=== PATIENT | female | born 1955 | race Caucasian/White ===

== ENCOUNTER 2016-07-03 13:33 | Emergency (ER) | payer MEDICARE, MEDICAID ==
[~2016-07-03] VITALS: Ht 162.6 cm; Wt 154.0 kg
[~2016-07-03 13:33] MED LIST: ACET325 PO; ALBU2.5I INH; ALBU6.7H INH; ASPI81TA45 PO; BENZ100 PO; CALA240T PO; CYCL-36 PO; GLUCOMETER XX; GLUCOMTESTSTRIPS XX; HYDR-2768 PO; LISI-360 PO; LYRI75CA PO; MELO15TA2 PO; METF-324 PO; NEBUMIS6 INH; OMEP40CA2 PO; PRAV40TA PO; PREG75 PO; TAB-TAB PO; ZITH250T PO
[2016-07-03 13:49] VITALS: BP 130/69; PULSE 78; RESP 16; TEMP 97.6; O2SAT 96
[2016-07-03] MEDS ORDERED: LISI10TA3 PO (14:55)
[2016-07-03] MEDS ORDERED: HYDR25TA5 PO (14:55)
[2016-07-03] MEDS ORDERED: TRAV0.00 EACH EYE (14:55)
[2016-07-03] MEDS ORDERED: VENTAER INH (14:55)
[2016-07-03] MEDS ORDERED: MELO-1 PO (14:55)
[2016-07-03] MEDS ORDERED: CYCL1TAB29 PO (14:55)
[2016-07-03] MEDS ORDERED: NORC5TAB PO (14:55)
[2016-07-03] MEDS ORDERED: METF1000 PO (14:55)
[2016-07-03] MEDS ORDERED: CETI1TAB39 PO (14:55)
[2016-07-03] MEDS ORDERED: BIO-POW (14:55)
[2016-07-03] MEDS ORDERED: VITA100021 SL (14:55)
[2016-07-03] MEDS ORDERED: MULTTAB67 PO (14:55)
[2016-07-03] MEDS ORDERED: BRIN1SUS2 EACH EYE (14:55)
[2016-07-03] MEDS ORDERED: GLIP5TAB8 PO (14:55)
[2016-07-03] MEDS ORDERED: VERA120T3 PO (14:55)
[2016-07-03] MEDS ORDERED: PRAV40TA2 PO (14:55)
[2016-07-03] MEDS ORDERED: MORPHINE SULFATE 4 MG/ML INJ IV PUSH ONE (15:00)
[2016-07-03] MEDS ORDERED: SODIUM CHLORID 0.9% 500 ML INJ 500 ML IV ONE (15:00)
[2016-07-03 15:23] LABS: AUTOMATED NEUTROPHIL # 12.8 TH/MM3 (1.8-7.7); BASOPHIL # 0.5 TH/MM3 (0-0.2); BASOPHIL % 2.6 % (0.0-2.0); EOSINOPHIL # 0.1 TH/MM3 (0-0.4); EOSINOPHIL % 0.6 % (0.0-4.0); HEMATOCRIT 43.7 % (35.0-46.0); LYMPHOCYTE # 3.7 TH/MM3 (1.0-4.8); MEAN CELL VOLUME 82.6 FL (80.0-100.0); MEAN CORPUSCULAR HGB CONC 32.6 % (32.0-36.0); MONO % 4.2 % (0.0-8.0); NEUT % 71.6 % (16.0-70.0); PLATELET COUNT 517 TH/MM3 (150-450); RED BLOOD COUNT 5.28 MIL/MM3 (4.00-5.30); RED CELL DISTRIBUTION WIDTH 14.5 % (11.6-17.2); WHITE BLOOD COUNT 17.8 TH/MM3 (4.0-11.0)
[2016-07-03 15:28] LABS: BLOOD, URINE TRACE (NEG); GLUCOSE,URINE NEG (NEG); KETONE, URINE NEG (NEG); PH, URINE 5.5 (5.0-8.5)
[2016-07-03 15:35] LABS: CHLORIDE 95 MEQ/L (98-107); POTASSIUM 4.4 MEQ/L (3.5-5.1); SODIUM (NA) 133 MEQ/L (136-145)
--- NOTE | 2016-07-03 15:37 | PD ---
HPI Chief Complaint: GI Complaint Time Seen by Provider: 14:49 Travel History International Travel<30 days: No Contact w/Intl Traveler<30days: No Traveled to known affect area: No History of Present Illness HPI Patient is a 61-year-old female comes in complaining of left lower quadrant abdominal pain. She says the pain started yesterday, and has been getting worse. She took an ibuprofen last night and went to sleep, but this morning she noticed the pain was worse. She says she has a constant dull ache, but it is worse with movement. She also reports diarrhea. She denies nausea or vomiting. She has not had any fever or chills. She did taken [place] prior to coming in. She says she has history of IBS and she had diverticulitis a long time ago. PFSH Past Medical History Arthritis: Yes Anxiety: Yes Depression: Yes Cancer: Yes (possible pelvic cancer) Cardiovascular Problems: No COPD: Yes Diabetes: Yes Patient Takes Glucophage: Yes Diminished Hearing: No Endocrine: Yes Gastrointestinal Disorders: Yes (CHRONIC DIARRHEA) Glaucoma: Yes (BOTH EYES) Genitourinary: Yes (URINARY INCONTINENCE) Hypertension: Yes Immune Disorder: No Musculoskeletal: Yes (ARTHRITIS) Neurologic: No Psychiatric: Yes Reproductive: Yes Respiratory: Yes (COPD) Menopausal: Yes Tubal Ligation: Yes Past Surgical History Abdominal Surgery: Yes (INCISIONAL HERNIA) AICD: No Gynecologic Surgery: Yes (TUBAL LIGATION, LASH) Joint Replacement: No Pacemaker: No Other Surgery: Yes Social History Alcohol Use: No Tobacco Use: Yes (03/09 PPD) Substance Use: No Allergies-Medications (Allergen,Severity, Reaction): Coded Allergies: No Known Allergies (Verified , 07/03/16) Reported Meds & Prescriptions Reported Meds & Active Scripts Active Cipro (Ciprofloxacin HCl) 500 Mg Tab 500 Mg PO BID 7 Days Reported Simbrinza Opth Drops (Brinzolamide-Brimonidine Opth Drops) 1-0.2% Susp 1 Drop EACH EYE Q8HR Travatan Z Opth Drops (Travoprost) 0.004 % Soln 1 Drop EACH EYE HS Vitamin B-12 (Cyanocobalamin) 1,000 Mcg Subl 1,000 Mcg SL DAILY Multiple Vitamin 1 Tab 1 Tab PO DAILY [place] (Hydrocodone-Acetaminophen) 5-325 mg Tab 1 Tab PO BID PRN Glipizide 5 Mg Tab 2.5 Mg PO BIDAC Take 30 minutes before a meal Zyrtec Allergy (Cetirizine HCl) 10 Mg Tab 10 Mg PO DAILY Flexeril (Cyclobenzaprine HCl) 10 Mg Tab 10 Mg PO TID Bio-Statin Powder (Nystatin) 1 Pow Pow Hydrochlorothiazide 25 Mg Tab 25 Mg PO DAILY Metformin (Metformin HCl) 1,000 Mg Tab 1,000 Mg PO BIDPC With meals Ventolin Hfa 18 GM Inh (Albuterol Sulfate) 90 Mcg/Act Aer 2 Puff INH Q4H PRN Verapamil (Verapamil HCl) 120 Mg Tab 120 Mg PO BID Pravastatin 40 Mg Tab 40 Mg PO HS Meloxicam 15 Mg Tab 15 Mg PO DAILY Lisinopril 10 Mg Tab 10 Mg PO DAILY Review of Systems Except as stated in HPI: all other systems reviewed are Neg General / Constitutional: No: Fever, Chills HENT: No: Headaches Cardiovascular: No: Chest Pain or Discomfort Respiratory: No: Shortness of Breath Gastrointestinal: Positive: Diarrhea, Abdominal Pain, No: Nausea, Vomiting Genitourinary: No: Dysuria Skin: No Rash, No Change in Pigmentation Neurologic: No: Weakness, Dizziness Physical Exam Narrative GENERAL: Awake and alert, in no acute distress. SKIN: Focused skin assessment warm/dry. HEAD: Atraumatic. Normocephalic. EYES: Pupils equal and round. No scleral icterus. ENT: Mucous membranes pink and moist. NECK: Trachea midline. No JVD. CARDIOVASCULAR: Regular rate and rhythm. No murmur appreciated. RESPIRATORY: No accessory muscle use. Clear to auscultation. Breath sounds equal bilaterally. GASTROINTESTINAL: Abdomen soft, nondistended. Left lower quadrant tenderness to palpation, no rebound or guarding. No CVA tenderness. MUSCULOSKELETAL: No obvious deformities. No clubbing. No cyanosis. No edema. NEUROLOGICAL: Awake and alert. No obvious cranial nerve deficits. Motor grossly within normal limits. Normal speech. PSYCHIATRIC: Appropriate mood and affect; insight and judgment normal. Data Data Last Documented VS Vital Signs Date Time Temp Pulse Resp B/P Pulse Ox O2 Delivery O2 Flow Rate FiO2 07/03/16 17:02 69 18 128/64 99 07/03/16 13:49 97.6 Orders Complete Blood Count With Diff (07/03/16 14:57) Comprehensive Metabolic Panel (07/03/16 14:57) Urinalysis - C+S If Indicated (07/03/16 14:57) Ct Abd/Pel W Iv Contrast(Rout) (07/03/16 ) Sodium Chlorid 0.9% 500 Ml Inj (Ns 500 M (07/03/16 15:00) Morphine Inj (Morphine Inj) (07/03/16 15:00) Urine Culture (07/03/16 15:23) Iohexol 350 Inj (Omnipaque 350 Inj) (07/03/16 15:40) Labs Laboratory Tests Test 07/03/16 07/03/16 15:10 15:23 White Blood Count 17.8 TH/MM3 Red Blood Count 5.28 MIL/MM3 Hemoglobin 14.3 GM/DL Hematocrit 43.7 % Mean Corpuscular Volume 82.6 FL Mean Corpuscular Hemoglobin 27.0 PG Mean Corpuscular Hemoglobin 32.6 % Concent Red Cell Distribution Width 14.5 % Platelet Count 517 TH/MM3 Mean Platelet Volume 7.8 FL Neutrophils (%) (Auto) 71.6 % Lymphocytes (%) (Auto) 21.0 % Monocytes (%) (Auto) 4.2 % Eosinophils (%) (Auto) 0.6 % Basophils (%) (Auto) 2.6 % Neutrophils # (Auto) 12.8 TH/MM3 Lymphocytes # (Auto) 3.7 TH/MM3 Monocytes # (Auto) 0.7 TH/MM3 Eosinophils # (Auto) 0.1 TH/MM3 Basophils # (Auto) 0.5 TH/MM3 CBC Comment DIFF FINAL Differential Comment Sodium Level 133 MEQ/L Potassium Level 4.4 MEQ/L Chloride Level 95 MEQ/L Carbon Dioxide Level 28.9 MEQ/L Anion Gap 9 MEQ/L Blood Urea Nitrogen 13 MG/DL Creatinine 0.91 MG/DL Estimat Glomerular Filtration 63 ML/MIN Rate Random Glucose 116 MG/DL Calcium Level 9.0 MG/DL Total Bilirubin 0.2 MG/DL Aspartate Amino Transf 20 U/L (AST/SGOT) Alanine Aminotransferase 24 U/L (ALT/SGPT) Alkaline Phosphatase 91 U/L Total Protein 6.9 GM/DL Albumin 2.9 GM/DL Urine Collection Type CLEAN CATCH Urine Color YELLOW Urine Turbidity SLIGHT Urine pH 5.5 Urine Specific [place] 1.026 Urine Protein TRACE mg/dL Urine Glucose (UA) NEG mg/dL Urine Ketones NEG mg/dL Urine Occult Blood TRACE Urine Nitrite POS Urine Bilirubin NEG Urine Leukocyte Esterase TRACE Urine RBC 4-9 /hpf Urine WBC 50-99 /hpf Urine Squamous Epithelial > 8 /hpf Cells Urine Bacteria MANY /hpf Microscopic Urinalysis Comment CULTURE INDICATED Urine Collection Time 15:23 [facility] Medical Decision Making Medical Screen Exam Complete: Yes Emergency Medical Condition: Yes Medical Record Reviewed: Yes Differential Diagnosis Colitis versus diverticulitis versus UTI Narrative Course Patient is a 61-year-old female comes in complaining of left lower quadrant abdominal pain. Exam shows point tenderness in the left lower quadrant. IV established, labs sent. Labs showed elevated white blood cell count of 17.8. Urinalysis is positive for infection. And pelvis shows no acute abnormalities. Patient reports feeling better after medication. Will be discharged with prescription for Cipro. Advised to follow- up with her doctor. Advised to return to the ED as needed for any worsening symptoms. Patient is asking to go home and is comfortable with this plan at this time. Diagnosis Primary Impression: UTI (urinary tract infection) Qualified Code: N30.00 - Acute cystitis without hematuria Patient Instructions: General Instructions, Urinary Tract Infection in Women ( ED) Additional Instructions: Follow up with your doctor. Take all of your antibiotic. Return to the ED as needed for any worsening symptoms. Scripts Ciprofloxacin (Cipro)500 Mg [id number] Mg PO BID 7 Days Ref 0 Prov:Ema Callahan MD 07/03/16 Disposition: 01 DISCHARGE HOME Condition: Stable Ema Callahan MD Jul 03, 2016 15:37
[2016-07-03 15:38] LABS: METHOD OF COLLECTION CLEAN CATCH; NITRITE,URINE POS (NEG); URINE COLOR YELLOW (YELLW/STRAW)
[2016-07-03 15:39] LABS: BACTERIA, URINE MANY /hpf; COMMENT (UR) CULTURE INDICATED; CULTURE IF INDICATED CULTURE INDICATED; SQUAMOUS EPITHELIAL CELL URINE > 8 /hpf (0-5)
[2016-07-03 15:39] LABS: ANION GAP 9 MEQ/L (5-15); BICARBONATE 28.9 MEQ/L (21.0-32.0); BLOOD UREA NITROGEN 13 MG/DL (7-18)
[2016-07-03] MEDS ORDERED: IOHEXOL 350 MG/ML 10 ML VIAL (for RAD DIAG) IV ONE (15:40)
[2016-07-03 15:42] LABS: ALT (GPT) 24 U/L (10-53); AST (GOT) 20 U/L (15-37); GLOMERULAR FILTRATION RATE 63 ML/MIN (>89)
[2016-07-03 15:44] LABS: TOTAL BILIRUBIN ADULT 0.2 MG/DL (0.2-1.0)
[2016-07-03 15:45] LABS: ALKALINE PHOSPHATASE 91 U/L (45-117)
[2016-07-03 15:50] LABS: HEMO FLAGS DIFF FINAL
--- NOTE | 2016-07-03 16:19 | RADHPO ---
EXAM DATE/TIME: 07/03/2016 15:50 [facility] COMPARISON: No previous studies available for comparison. INDICATIONS : Left lower quadrant pain. Diarrhea. IV CONTRAST: 90 cc Omnipaque 350 (iohexol) IV ORAL CONTRAST: No oral contrast ingested. RADIATION DOSE: 22.41 CTDIvol (mGy) MEDICAL HISTORY : Hypertension. Diabetes mellitus type 2. Chronic obstructive pulmonary disease. SURGICAL HISTORY : Tubal ligation. ENCOUNTER: Initial ACUITY: 2 days PAIN SCALE: 9/10 LOCATION: Left lower quadrant TECHNIQUE: Volumetric scanning of the abdomen and pelvis was performed. Using automated exposure control and ad justment of the mA and/or kV according to patient size, radiation dose was kept as low as reasonably achievable to obtain optimal diagnostic quality images. FINDINGS: LOWER LUNGS: The visualized lower lungs are clear. LIVER: Homogeneous density without lesion. There is no dilation of the biliary tree. No calcified gallston es. SPLEEN: Normal size without lesion. PANCREAS: Within normal limits. KIDNEYS: Normal in size and shape. There is no mass, stone or hydronephrosis. ADRENAL GLANDS: Right adrenal gland is unremarkable. There is a low attenuation 2.2 x 1.5 cm mass in the left adrenal gland. VASCULAR: There is no aortic aneurysm. BOWEL/MESENTERY: Multiple diverticuli present greatest in the sigmoid colon with no definite wall thickening or inflam matory change. The stomach, small bowel, and colon demonstrate no acute abnormality. There is no krystina e intraperitoneal air or fluid. ABDOMINAL WALL: Within normal limits. RETROPERITONEUM: There is no lymphadenopathy. BLADDER: No wall thickening or mass. REPRODUCTIVE: Within normal limits. INGUINAL: There is no lymphadenopathy or hernia. MUSCULOSKELETAL: Within normal limits for patient age. CONCLUSION: 1. Mild to moderate diverticulosis with no definite inflammatory change. 2. Left adrenal adenoma. Yony Burgos MD on July 03, 2016 at 16:14 Board Certified Radiologist. This report was verified electronically.
[2016-07-03] MEDS ORDERED: CIPR-9 PO (16:31)
[2016-07-03 17:02] VITALS: BP 128/64
== END 2016-07-03 17:05 | disposition home or self-care (01) ==
LOC: PHED 13:33
DX: N39.0 Urinary tract infection, site not specified (principal); B96.20 Unspecified Escherichia coli [E. coli] as the cause of diseases classified elsewhere; J44.9 Chronic obstructive pulmonary disease, unspecified; E11.9 Type 2 diabetes mellitus without complications; H40.9 Unspecified glaucoma; I10 Essential (primary) hypertension; F17.210 Nicotine dependence, cigarettes, uncomplicated
CPT/HCPCS: 74177; 80053; 81001; 85025; 87077; 87086; 87186; 96361; 96374; 99284; J2270; J7040; Q9967

== ENCOUNTER 2016-07-05 14:01 | Emergency (ER) | payer MEDICARE, MEDICAID ==
[~2016-07-05] VITALS: Ht 162.6 cm; Wt 130.0 kg
[~2016-07-05 14:01] MED LIST changes: -ACET325 PO; -ALBU2.5I INH; -ALBU6.7H INH; -ASPI81TA45 PO; -BENZ100 PO; +BIO-POW; +BRIN1SUS2 EACH EYE; -CALA240T PO; +CETI1TAB39 PO; +CIPR-9 PO; -CYCL-36 PO; +CYCL1TAB29 PO; +GLIP5TAB8 PO; -GLUCOMETER XX; -GLUCOMTESTSTRIPS XX; -HYDR-2768 PO; +HYDR25TA5 PO; -LISI-360 PO; +LISI10TA3 PO; -LYRI75CA PO; +MELO-1 PO; -MELO15TA2 PO; -METF-324 PO; +METF1000 PO; +MULTTAB67 PO; -NEBUMIS6 INH; +NORC5TAB PO; -OMEP40CA2 PO; -PRAV40TA PO; +PRAV40TA2 PO; -PREG75 PO; -TAB-TAB PO; +TRAV0.00 EACH EYE; +VENTAER INH; +VERA120T3 PO; +VITA100021 SL; -ZITH250T PO
[2016-07-05 14:32] VITALS: BP 125/87; PULSE 70; RESP 16; TEMP 97.7; O2SAT 98
[2016-07-05] MEDS ORDERED: SULFAMETHOXAZOLE-TRIMETHOPRIM DS 800-160 MG TAB PO ONE (16:15)
[2016-07-05] MEDS ORDERED: PERC5TAB12 PO (16:16)
[2016-07-05] MEDS ORDERED: ZOFR4TAB3 SL (16:16)
[2016-07-05] MEDS ORDERED: CEPH-460 PO (16:16)
--- NOTE | 2016-07-05 16:17 | PD ---
HPI Chief Complaint: Complaint Time Seen by Provider: 15:45 Travel History International Travel<30 days: No Contact w/Intl Traveler<30days: No Traveled to known affect area: No History of Present Illness HPI This 61-year-old female is complaining of burning with urination. She was here on Wednesday and diagnosed with a urinary tract infection. She was put on Cipro. Culture is available now and it shows that her urine grew Escherichia coli which is sensitive to everything except for Cipro. She has no known allergies. She does have a history of neuropathy and has noted increasing numbness in her left leg and she has been on the Cipro. She sees a neurologist and has been diagnosed with neuropathy secondary to diabetes. She has been taking some Lortab for pain which has caused her nausea. PFSH Past Medical History Arthritis: Yes Anxiety: Yes Depression: Yes Cancer: Yes (possible pelvic cancer) Cardiovascular Problems: No COPD: Yes Diabetes: Yes Patient Takes Glucophage: Yes Diminished Hearing: No Endocrine: Yes Gastrointestinal Disorders: Yes (CHRONIC DIARRHEA) Glaucoma: Yes (BOTH EYES) Genitourinary: Yes (URINARY INCONTINENCE) Hypertension: Yes Immune Disorder: No Musculoskeletal: Yes (ARTHRITIS) Neurologic: No Psychiatric: Yes Reproductive: Yes Respiratory: Yes (COPD) Immunizations Current: Yes Influenza Vaccination: No Menopausal: Yes Tubal Ligation: Yes Past Surgical History Abdominal Surgery: Yes (INCISIONAL HERNIA) AICD: No Gynecologic Surgery: Yes (TUBAL LIGATION, LASH) Joint Replacement: No Pacemaker: No Other Surgery: Yes Social History Alcohol Use: No Tobacco Use: Yes (03/09 PPD) Substance Use: No Allergies-Medications (Allergen,Severity, Reaction): Coded Allergies: No Known Allergies (Verified , 07/05/16) Reported Meds & Prescriptions Reported Meds & Active Scripts Active Cipro (Ciprofloxacin HCl) 500 Mg Tab 500 Mg PO BID 7 Days Reported Simbrinza Opth Drops (Brinzolamide-Brimonidine Opth Drops) 1-0.2% Susp 1 Drop EACH EYE Q8HR Travatan Z Opth Drops (Travoprost) 0.004 % Soln 1 Drop EACH EYE HS Vitamin B-12 (Cyanocobalamin) 1,000 Mcg Subl 1,000 Mcg SL DAILY Multiple Vitamin 1 Tab 1 Tab PO DAILY [place] (Hydrocodone-Acetaminophen) 5-325 mg Tab 1 Tab PO BID PRN Glipizide 5 Mg Tab 2.5 Mg PO BIDAC Take 30 minutes before a meal Zyrtec Allergy (Cetirizine HCl) 10 Mg Tab 10 Mg PO DAILY Flexeril (Cyclobenzaprine HCl) 10 Mg Tab 10 Mg PO TID Bio-Statin Powder (Nystatin) 1 Pow Pow Hydrochlorothiazide 25 Mg Tab 25 Mg PO DAILY Metformin (Metformin HCl) 1,000 Mg Tab 1,000 Mg PO BIDPC With meals Ventolin Hfa 18 GM Inh (Albuterol Sulfate) 90 Mcg/Act Aer 2 Puff INH Q4H PRN Verapamil (Verapamil HCl) 120 Mg Tab 120 Mg PO BID Pravastatin 40 Mg Tab 40 Mg PO HS Meloxicam 15 Mg Tab 15 Mg PO DAILY Lisinopril 10 Mg Tab 10 Mg PO DAILY Review of Systems General / Constitutional: No: Fever, Chills Eyes: No: Diploplia HENT: No: Headaches, Vertigo Cardiovascular: No: Chest Pain or Discomfort, Irregular Rhythm Gastrointestinal: Positive: Nausea Genitourinary: Positive: Urgency, Frequency, Dysuria Musculoskeletal: No: Myalgias, Arthralgias Skin: No Rash Neurologic: Positive: Weakness, Sensory Disturbance Physical Exam Narrative GENERAL: Well-developed female SKIN: Focused skin assessment warm/dry. HEAD: Atraumatic. Normocephalic. EYES: Pupils equal and round. No scleral icterus. No injection or drainage. ENT: No nasal bleeding or discharge. Mucous membranes pink and moist. NECK: Trachea midline. No JVD. CARDIOVASCULAR: Regular rate and rhythm. No murmur appreciated. RESPIRATORY: No accessory muscle use. Clear to auscultation. Breath sounds equal bilaterally. GASTROINTESTINAL: Abdomen soft, non-tender, nondistended. Hepatic and splenic margins not palpable. MUSCULOSKELETAL: No obvious deformities. No clubbing. No cyanosis. Trace edema laterally. NEUROLOGICAL: Awake and alert. No obvious cranial nerve deficits. He has diminished sensation of the left leg from just below the knee down. Sensation the right foot. Dorsiflexion is slightly weaker in the left foot and the right PSYCHIATRIC: Appropriate mood and affect; insight and judgment normal. Data Data Last Documented VS Vital Signs Date Time Temp Pulse Resp B/P Pulse Ox O2 Delivery O2 Flow Rate FiO2 07/05/16 14:32 97.7 70 16 125/87 98 Orders Sulfamet-Trimeth Ds 800-160 Mg (Bactrim (07/05/16 16:15) MDM Medical Decision Making Medical Screen Exam Complete: Yes Emergency Medical Condition: Yes Medical Record Reviewed: Yes Differential Diagnosis Differential includes UTI, neuropathy Narrative Course This patient has had worsening of her neuropathy possibly secondary to the Cipro. In any event. Antibiotic should be changed on the basis of the sensitivity of the organism. She'll be changed to Bactrim. I will also prescribe Zofran for nausea and she will try Percocet to see if that causes less nausea than the Lortab Diagnosis Primary Impression: UTI (urinary tract infection) Qualified Code: N30.00 - Acute cystitis without hematuria Additional Impression: Neuropathy Scripts Ondansetron Odt (Zofran Odt)4 Mg Tab4 Mg SL Q6HR PRN (Nausea/Vomiting) #14 TAB Ref 0 Prov:Matt Ann MD 07/05/16 Oxycodone-Acetaminophen (Percocet)5-325 mg Tab1 Tab PO Q4H PRN (PAIN) #20 TAB Ref 0 Prov:Matt Ann MD 07/05/16 Cephalexin (Keflex)500 Mg [id number] Mg PO Q6H #28 CAP Ref 0 Prov:Matt Ann MD 07/05/16 Disposition: 01 DISCHARGE HOME Condition: Stable Matt Ann MD Jul 05, 2016 16:17
[2016-07-05] MEDS ORDERED: CEPHALEXIN MONOHYDRATE 500 MG CAP PO ONE (17:00)
== END 2016-07-05 16:54 | disposition home or self-care (01) ==
LOC: PHED 14:01
DX: N39.0 Urinary tract infection, site not specified (principal); G62.9 Polyneuropathy, unspecified; F41.8 Other specified anxiety disorders; M19.90 Unspecified osteoarthritis, unspecified site; J44.9 Chronic obstructive pulmonary disease, unspecified; I10 Essential (primary) hypertension; F17.210 Nicotine dependence, cigarettes, uncomplicated
CPT/HCPCS: 99283